=== PATIENT | male | born 1955 ===

== ENCOUNTER 2022-01-07 10:34 | Inpatient (IN) ==
[2022-01-07] MEDS ORDERED: HYDROmorphone 1 MG/1 ML SYRINGE IV STA ×2 (10:49→14:41)
[2022-01-07] MEDS ORDERED: ONDANSETRON 4 MG/2 ML VIAL IV STA ×2 (10:49→14:42)
[2022-01-07] MEDS ORDERED: SODIUM CHLORIDE 0.9% 1,000 ML IV STA (10:49)
[2022-01-07] MEDS ORDERED: ONDANSETRON 4 MG/2 ML VIAL ONE (10:50)
[2022-01-07] MEDS ORDERED: HYDROmorphone 1 MG/1 ML SYRINGE ONE (10:50)
[2022-01-07 11:04] LABS: Basophils % 0.3 % (0.0-0.8); Eosinophils # 0.1 10*3/uL (0.0-0.87); Eosinophils % 0.9 % (0.00-10.9); Hematocrit 49.4 VOL% (42.0-52.0); Hemoglobin 16.3 GM/DL (14.0-18.0); Immature Granulocytes % 0.3 %; Immature Granulocytes Absolute 0.03 #; Lymphocytes # 0.8 10*3/uL (1.4-4.0); Lymphocytes % 8.1 % (21.2-54.2); Mean Corpuscular Volume 102.7 FL (87-102); Mean Platelet Volume 11.2 FL (9.6-12.0); Monocytes # 0.4 10*3/uL (0.11-0.8); Monocytes % 4.3 % (1.7-12.7); Neutrophils % 86.1 % (38.7-73.9); Platelet Count 185 T/CUMM (130-400); Red Blood Count 4.81 MC/CUMM (3.8-5.5); Red Cell Distribution Width 12.5 % (9.3-17.3); White Blood Count 9.4 T/CUMM (4-12)
[2022-01-07 11:29] LABS: Albumin 4.1 G/DL (3.4-5.0); Calcium 9.2 MG/DL (8.5-10.1); Osmolality,Calculated 278.4 MOS/KG (273-304); Potassium 4.4 MMOL/L (3.5-5.1); Total Protein 7.2 G/DL (6.4-8.2)
[2022-01-07] MEDS ORDERED: AMPICILLIN/SULBACTAM 3,000 MG in SODIUM CHLORIDE 0.9% 100 ML IV STA (13:51)
[2022-01-07] MEDS ORDERED: PROMETHAZINE 25 MG/1 ML VIAL ONE (14:36)
[2022-01-07] MEDS ORDERED: ONDANSETRON 4 MG/2 ML VIAL IV PRN (14:44)
[2022-01-07] MEDS ORDERED: BISACODYL 5 MG TABLET PO PRN (14:44)
[2022-01-07] MEDS ORDERED: HYDROmorphone 1 MG/1 ML SYRINGE IV PRN ×2 (14:44)
[2022-01-07] MEDS ORDERED: ACETAMINOPHEN 325 MG TABLET PO PRN (14:44)
[2022-01-07] MEDS ORDERED: hydrALAZINE 20 MG/1 ML VIAL IV PRN (14:50)
[2022-01-07] MEDS: LACTATED RINGERS 1,000 ML IV SCH (15:00)
[2022-01-07] MEDS: PIPERACILLIN/TAZOBACTAM 3,375 MG in SODIUM CHLORIDE 0.9% 100 ML IV SCH (20:30)
[2022-01-07] MEDS ORDERED: PROMETHAZINE INJ 25 MG in SODIUM CHLORIDE 0.9% 50 ML IV PRN (21:33)
[2022-01-08] MEDS: PIPERACILLIN/TAZOBACTAM 3,375 MG in SODIUM CHLORIDE 0.9% 100 ML IV SCH ×3 (05:47→21:18)
[2022-01-08] MEDS: LACTATED RINGERS 1,000 ML IV SCH ×3 (07:00→16:44)
[2022-01-08] MEDS ORDERED: INDOCYANINE GREEN 25 MG VIAL IV ONE (07:00)
[2022-01-08] MEDS ORDERED: SUCCINYLCHOLINE 200 MG/10 ML VIAL ONE (08:18)
[2022-01-08] MEDS ORDERED: ONDANSETRON 4 MG/2 ML VIAL ONE (08:18)
[2022-01-08] MEDS ORDERED: LIDOCAINE 2% 5 ML VIAL ONE (08:18)
[2022-01-08] MEDS ORDERED: DEXAMETHASONE 4 MG/1 ML VIAL ONE (08:18)
[2022-01-08] MEDS ORDERED: ROCURONIUM 50 MG/5 ML VIAL IV ONE (08:18)
[2022-01-08] MEDS ORDERED: propofoL 200 MG/20 ML VIAL IV ONE (08:18)
[2022-01-08] MEDS ORDERED: fentaNYL 100 MCG/2 ML VIAL ONE (08:18)
[2022-01-08] MEDS ORDERED: LACTATED RINGERS 1,000 ML IV SCH (09:00)
[2022-01-08] MEDS ORDERED: TISSUE ADHESIVE 1 EACH APPLICATOR TOP ONE (09:46)
[2022-01-08] MEDS ORDERED: SODIUM CHLORIDE 0.9% 1,000 ML IV ONE (09:50)
[2022-01-08] MEDS ORDERED: LABETALOL 20 MG/4 ML SYRINGE IV ONE (09:51)
[2022-01-08] MEDS ORDERED: SEVOFLURANE 1 UNIT/15 MINUTE INH ONE ×3 (09:51→10:36)
[2022-01-08] MEDS: PANTOPRAZOLE 40 MG TABLET PO SCH (10:50)
[2022-01-08] MEDS ORDERED: GLYCOPYRROLATE 0.4 MG/2 ML VIAL ONE (11:20)
[2022-01-08] MEDS ORDERED: NEOSTIGMINE 10 MG/10 ML VIAL ONE (11:20)
[2022-01-08] MEDS ORDERED: HYDROmorphone 1 MG/1 ML SYRINGE ONE (11:25)
[2022-01-08] MEDS ORDERED: ONDANSETRON 4 MG/2 ML VIAL IV PRN (11:46)
[2022-01-08] MEDS: HYDROmorphone 1 MG/1 ML SYRINGE IV PRN ×4 (11:50→12:27)
[2022-01-09] MEDS: PIPERACILLIN/TAZOBACTAM 3,375 MG in SODIUM CHLORIDE 0.9% 100 ML IV SCH (05:55)
[2022-01-09 06:22] LABS: Bilirubin,Urine Negative (Negative); Blood, Urine Negative (Negative); Glucose,Urine (UA) Negative (Negative); Ketones,Urine Negative (Negative); Mucus,Urine Occasional /LPF (Occasional); Nitrite,Urine Negative (Negative); Protein,Urine Negative (Negative); RBC,Urine 1 /HPF (0-4); Urine Appearance Clear (Clear); Urine Color Yellow (Yellow)
[2022-01-09] MEDS: LACTATED RINGERS 1,000 ML IV SCH (07:52)
[2022-01-09] MEDS: PANTOPRAZOLE 40 MG TABLET PO SCH (08:35)
[2022-01-09 11:23] VITALS: BP 140/83
== END 2022-01-09 13:01 | disposition home or self-care (01) | DRG 419 ==
LOC: N.ED 10:34 → N.EDINP 15:18 → N.3E 16:20
PROVIDERS: ADMIT Student in an Organized Health Care Education/Training Program; ATTEND Student in an Organized Health Care Education/Training Program